=== PATIENT | female | born 1995 | race Caucasian/White ===

== ENCOUNTER 2016-03-24 19:58 | Emergency (ER) | payer OTHER ==
[2016-03-24] MEDS ORDERED: ACETAMINOPHEN 325 MG TABLET ONE (22:48)
[2016-03-24] MEDS ORDERED: IBUPROFEN 600 MG TABLET ONE (22:48)
== END 2016-03-24 22:58 | disposition home or self-care (01) ==
LOC: ED 19:58
DX: R07.9 Chest pain, unspecified (principal); R06.02 Shortness of breath
CPT/HCPCS: 99283 ×2; 93005; A9270 ×2